=== PATIENT | female | born 1995 | race Caucasian/White ===

== ENCOUNTER 2018-02-27 09:31 | Outpatient (CLI) | payer OTHER, BC ==
[2018-02-27] MEDS: LACTATED RINGER'S 1,000 ML IV (09:41)
[2018-02-27] MEDS: TERBUTALINE 1 MG/ML INJ SC (09:42)
== END 2018-02-27 11:54 | disposition home or self-care (01) ==
LOC: OBT 09:31 → L-D 09:32 → OBT 11:54
DX: O62.9 Abnormality of forces of labor, unspecified (principal); Z3A.34 34 weeks gestation of pregnancy
CPT/HCPCS: 36415; 76817; 96360; 96372